=== PATIENT | female | born 1975 | race Caucasian/White ===

== ENCOUNTER 2017-07-31 05:35 | Day surgery (SDC) | payer MEDICARE ==
[~2017-07-31] VITALS: Ht 170.2 cm; Wt 97.5 kg
[~2017-07-31 05:35] MED LIST: ACIDOPHILUS1 EAC5 PO; AMBIEN5 MG PO; HUMALOG100 UNITS/ IV; JANUMET XR 50-1 EAC1 PO; LANTUS100 UNITS/ SUB-Q; MS CONTIN15 MG PO; MULTIVITAMINS1 EAC7 PO; PERCOCET 5-3251 EACH PO
[2017-07-31] MEDS ORDERED: LORAZEPAM0.5 MG PO (05:47)
--- NOTE | 2017-07-31 08:21 | NUR ---
07/31/17 0821 Alida Calderon 0804 PT ARRIVED IN PACU VERY SLEEPY. ANESTHESIA AT BEDSIDE.
--- NOTE | 2017-07-31 08:51 | NUR ---
PT IS BACK TO DS FROM PACU. PT REPORTS NEEDING TO URINATE OR HAVING THE URGE TO DO SO. SHE COMES OVER ON A BEDPAN. SHE IS HELPED UP OOB BY CARE COMPANION AND ESCORTED TO THE BATHROOM. CALL LIGHT IS WITHIN REACH. WATER ON BEDSIDE TABLE. NO OTHER C/O'S AT THIS TIME. WILL REASSESS WITHIN THE HOUR.
--- NOTE | 2017-07-31 11:12 | NUR ---
PT HAS BEEN ABLE TO TOLERATE FOOD AND BEVERAGE WITHOUT ISSUE. SHE IS ABLE TO GET HERSELF UP AND TRANSFER TO THE BATHROOM ON HER OWN. PAIN IS 0/10 AT THIS TIME. ONLY COMPLAINT IS THAT SHE IS TIRED. SHE HAS MET ALL DC CRITIERIA AT THIS TIME. WILL WORK ON DC PATIENT HOME.
--- NOTE | 2017-08-07 08:45 | OR ---
[facility] [address], [place] [address] Signed DATE OF OPERATION: 07/31/2017 SURGEON: Ravi Koehler MD PREOPERATIVE DIAGNOSIS: Interstitial cystitis. POSTOPERATIVE DIAGNOSIS: Interstitial cystitis. NAMES OF PROCEDURES: Diagnostic cystoscopy with hydrodistention. ANESTHESIA: General. ESTIMATED BLOOD LOSS: Minimal. COMPLICATIONS: None. SPECIMENS: None. DRAINS: None. INDICATIONS FOR PROCEDURE: Ms. Aguilar is a very pleasant 42-year-old female with a long-standing history of depression and narcotic use, who presented to my clinic with complaints of chronic dysuria and suprapubic pain. At the time, she was placed on Uribel, which resulted in a paradoxical worsening of her symptoms. She has elected to undergo cystoscopy with hydrodistention in hopes to get better control of her painful bladder symptoms. OPERATIVE FINDINGS: On cystoscopy, there was no evidence of any suspicious masses, lesions, or stones. The patient's bladder is diffusely erythematous with multiple superficial blood vessels noted. The patient's bladder was filled with a total of 800 mL of water and was maintained at this level of distention for approximately 8 minutes. She did develop Electronically Signed By: RAVI KOEHLER MD 08/07/17 0845 PATIENT NAME: CLINTON AGUILAR OPERATIVE REPORT DATE OF : 75 PHYSICIAN: RAVI KOEHLER MD REPORT #: [id number] REPORT IS CONFIDENTIAL AND NOT TO BE RELEASED WITHOUT AUTHORIZATION [facility] [address] [place], [place] [address] Signed some areas of glomerulation noted particularly on the right lateral wall once her bladder was distended for around 5 minutes or so. The patient's bladder was emptied completely at the end of procedure. DESCRIPTION OF PROCEDURE: After informed consent was obtained, the patient was taken back to the operating room. She was transferred from the [facility] to operating room table, where general anesthesia was induced. She was placed in dorsal lithotomy position and her genitalia prepped and draped in standard sterile fashion. Using a 30-degree lens on 22-Zambian introducer rigid cystoscope was inserted through the urethra and into her bladder under direct visualization. Panendoscopic views of the bladder were then obtained. Please see above findings. The patient's bilateral ureteral orifices are in their normal anatomic location. I emptied the patient's bladder and then reinserted the scope and began to fill her bladder. The patient's bladder was filled with a total of 800 mL of water. Her bladder remained full for approximately 8 minutes. Please see above findings. The patient's bladder was then emptied and drained completely. The procedure was then terminated. The patient tolerated the procedure well without any complication. She will now be transferred to the postanesthesia care unit in stable condition. DISPOSITION: I discussed the details of today's procedure with the patient's Trace and answered all of his questions. She will be sent home today with Cipro for a total of 7 days along with Percocet 5/325, dispense #20 as needed for pain. She will be scheduled to return to clinic in approximately 5 weeks for routine postoperative check. MD ABDULKADIR Curran/MODL /[id number] Electronically Signed By: RAVI KOEHLER MD 08/07/17 0845 PATIENT NAME: CLINTON AGUILAR OPERATIVE REPORT DATE OF : 75 PHYSICIAN: RAVI KOEHLER MD REPORT #: [id number] REPORT IS CONFIDENTIAL AND NOT TO BE RELEASED WITHOUT AUTHORIZATION
== END 2017-07-31 11:25 | disposition home or self-care (01) ==
LOC: OPS 05:35 → DS 05:35 → OPS 06:45 → DS 06:45 → OPS 11:25
PROVIDERS: Urology
PROC: 0T7B8ZZ Dilation of Bladder, Via Natural or Artificial Opening Endoscopic (ICD-10-PCS; principal; 2017-07-31 06:45)
DX: N30.10 Interstitial cystitis (chronic) without hematuria (principal); E11.9 Type 2 diabetes mellitus without complications; M79.7 Fibromyalgia; Z90.710 Acquired absence of both cervix and uterus; Z98.890 Other specified postprocedural states; Z88.2 Allergy status to sulfonamides; Z88.1 Allergy status to other antibiotic agents; Z88.8 Allergy status to other drugs, medicaments and biological substances
CPT/HCPCS: 00910; J0696; J1100; J1170; J1885; J2250; J2405; J2704; J2765; J3010; J7120

== ENCOUNTER 2020-04-20 08:45 | Day surgery (SDC) | payer MEDICARE, BC ==
[~2020-04-20] VITALS: Ht 170.2 cm; Wt 215.0 kg
--- NOTE | ~2020-04-20 | OR ---
[facility] [address] [place], [place] [address] Draft DATE OF OPERATION: 04/20/2020 SURGEON: Ravi Koehler MD PREOPERATIVE DIAGNOSIS: Interstitial cystitis. POSTOPERATIVE DIAGNOSIS: Interstitial cystitis. PROCEDURES: Diagnostic cystoscopy with hydrodistention. ANESTHESIA: General. ESTIMATED BLOOD LOSS: Minimal. COMPLICATIONS: None. SPECIMENS: None. DRAINS: None. INDICATIONS FOR PROCEDURE: Clinton is a very pleasant 44-year-old female, who is well known to me. She has a longstanding history of interstitial cystitis and recently noticed a worsening of her symptoms of suprapubic pain, cramping, and dysuria. She recently requested another cystoscopy with hydrodistention as she has responded to this procedure in the past. She presents today to undergo the aforementioned procedure. OPERATIVE FINDINGS: 1. On cystoscopy, there was no evidence of any suspicious masses, lesions, or stones. Her bilateral ureteral orifices are in their normal anatomic location and effluxing clear urine. 2. The patient's bladder was filled to a maximum capacity of 700 mL for a total of 8 PATIENT NAME: CLINTON AGUILAR OPERATIVE REPORT DATE OF : 75 REPORT #: [id number] PHYSICIAN: RAVI KOEHLER MD PCP: ANA MARÍA BURROUGHS [facility] REPORT IS CONFIDENTIAL AND NOT TO BE RELEASED WITHOUT AUTHORIZATION [address] [address] Draft minutes. The patient's bladder showed good compliance, in that there was no intermittent leakage of fluid during the distention. There was only very minimal hemorrhage at the end of the distention. I only saw two small Hunner's ulcers at the completion of the procedure. DESCRIPTION OF PROCEDURE: After informed consent was obtained, the patient was taken back to the operating room. [facility] operating room table, where general anesthesia was induced. She was placed in the dorsal lithotomy position and her genitalia were prepped and draped in a standard sterile fashion. Using a 30-degree lens on a 22.5-Greek introducer, rigid cystoscope was inserted through the urethra into her bladder under direct visualization. Panendoscopic views of the bladder were then obtained. Please see above findings. I then emptied the patient's bladder, and then initiated the distention portion of the procedure. The patient's bladder was filled to a total of 700 mL for 8 minutes. At the end of the procedure, I only appreciated a very small amount of hemorrhage and only two small Hunner's ulcers located on the posterior/left lateral wall of the bladder. After the patient's bladder was completely drained of the 700 mL, I repeated diagnostic cystoscopy and was able to appreciate no active hemorrhage other than the two Hunner's ulcers. The patient's bladder was then drained again, and the cystoscope was removed. The procedure was then terminated. The patient tolerated the procedure well without any complication. She will now be transferred to the postanesthesia care unit in stable condition. DISPOSITION: The patient will be discharged to home later today when she awakes from general anesthetic. She was given prescriptions for Pyridium 200 mg p.o. t.i.d. p.r.n. dysuria, Percocet 10/325 q.6 hours p.r.n. pain, dispense #40, B and O suppository 16. q.12 hours p.r.n. bladder spasms, dispense #24, along with Cipro 500 mg p.o. b.i.d. for a total of 10 days. She will be scheduled return to clinic in three months for her first postoperative check. MD ABDULKADIR Curran/ERMIASL /[id number] PATIENT NAME: CLINTON AGUILAR OPERATIVE REPORT DATE OF : 75 REPORT #: [id number] PHYSICIAN: RAVI KOEHLER MD PCP: ANA MARÍA BURROUGHS Meghna REPORT IS CONFIDENTIAL AND NOT TO BE RELEASED WITHOUT AUTHORIZATION [facility] [address] [place] [id number] Draft Copies: ~ PATIENT NAME: CLINTON AGUILAR OPERATIVE REPORT DATE OF : 75 REPORT #: [id number] PHYSICIAN: RAVI KOEHLER MD PCP: ANA MARÍA BURROUGHS REPORT IS CONFIDENTIAL AND NOT TO BE RELEASED WITHOUT AUTHORIZATION
[~2020-04-20 08:45] MED LIST changes: +BELLADONNA-OPIU30 MG PR; +COMPAZINE25 MG PR; +CYCLOBENZAPRINE10 MG PO; +HYDROXYZINE HCL50 MG PO; +LEVOTHYROXINE50 MCG PO; +LORAZEPAM0.5 MG PO; +NOVOLIN 70100 UNIT/1; +SUDOGEST30 MG PO; +VENTOLIN HFA18 GM
[2020-04-20] MEDS ORDERED: PERCOCET 5-3251 EACH PO (09:06)
--- NOTE | 2020-04-20 12:14 | NUR ---
04/20/20 1214 Alida Calderon 1131 PT ARRIVED IN PACU SLEEPY WITH OPA IN PLACE. 1139 PT REACTIVE. OPA REMOVED. BLOOD SUGAR 164. 1145 C/O URGE TO VOID. SITTING ON BEDPAN. 1150 UNABLE TO VOID. BEDPAN REMOVED. 1153 C/O BLADDER PAIN 7/10. FENTANYL 50MCG GIVEN IVP. 1158 PAIN DOWN TO 6/10. FENTANYL 50MCG GIVEN IVP. C/O NAUSEA. 1201 ZOFRAN 4MG GIVEN IVP. 1210 PAIN DOWN TO 5/10. NAUSEA GONE. TO DS. REPORT GIVEN TO NARENDRA.
--- NOTE | 2020-04-20 12:26 | NUR ---
PATIENT BACK TO ROOM @ 1210, BEDSIDE REPORT FROM HOLLIE MACKEY. PATIENT AWAKE AND ALERT. REPORTING PAIN 5/10 ON PAIN SCALE. PROVIDED WATER AND SNACKS. PATIENT TOLERATED WELL. ADMINISTERED PO PAIN MEDICAITON PER MAR. PATIENT REPORTS PAIN IN LOWER ABDOMEN AND VAGINAL AREA. STATES " THIS ALSO HAS MY FIBRO AND LUPUS WONDERING WHAT'S GOING ON". PATIENT APPEARS CALM. PATIENT SUPPORT ANIMAL IS ON LAP EATING YOCASTA CRACKERS WITH PATIENT. CALL LIGHT WITHINR REACH, AT BEDSIDE. NO OTHER NEEDS AT THIS TIME.
--- NOTE | 2020-04-20 13:00 | NUR ---
PT USES CALL LIGHT TO NOTIFY RN OF URGE TO VOID. PT SITS AT SIDE OF BED PRIR TO STANDING, DENIES NAUSEA OR DIZZINESS WITH POSITION CHANGE. RN ASSIST TO BATHROOM WITH STEADY GAIT. PT DENIES ANY PROBLEMS, RN ASSIST BACK TO DS RM 3. NEW BLANKETS PROVIDED, WANDY HUGGER ON WARM. PT SPOUSE AT BEDSIDE WITH SERVICE ANIMAL. CALL LIGHT WITHIN REACH.
--- NOTE | 2020-04-20 13:36 | NUR ---
PT PROVIDED JELLO AND MORE CRACKERS PER REQUEST. ICED WATER REFILLED. PT STATES IV GIVING HER ANXIETY AND REQUESTS IT BE TAKEN OUT. 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 SERVICE ANIMAL ON PT LAP AT THIS TIME. CALL LIGHT WITHIN REACH.
--- NOTE | 2020-04-20 14:44 | NUR ---
DC CRITERIA MET AT THIS TIME. PT AGREES THAT SHE IS READY TO DC HOME. PT DRESSES SELF WITH SPOUSE AT BEDSIDE, ENC TO OPEN CURTAIN WHEN FINISHED.
--- NOTE | 2020-04-20 15:48 | NUR ---
1450: DC INSTRUCTIONS GIVEN IN PRESENCE OF PT AND SPOUSE. PT DOES NOT HAVE ANY QUESTIONS BUT STATES THAT FOLLOW UP APPT WITH DR. KOEHLER WILL NOT WORK AND SHE WILL CALL TO RESCHEDULE. PAPER COPY OF PRESCRIPTION PROVIDED IN DC PACKET, PT NOTIFIED THEY NEED TO DROP IT OFF AT PHARMACY TO FILL. PT DC VIA WC TO PERSONAL VEHICLE DRIVEN BY SPOUSE TO HOME.
== END 2020-04-20 14:55 | disposition home or self-care (01) ==
LOC: OPS 08:45 → DS 08:45 → OPS 10:35 → DS 10:35 → OPS 14:55
PROVIDERS: ATTEND Urology
PROC: 0T7B8ZZ Dilation of Bladder, Via Natural or Artificial Opening Endoscopic (ICD-10-PCS; principal; 2020-04-20 10:35)
DX: N30.10 Interstitial cystitis (chronic) without hematuria (principal); E11.9 Type 2 diabetes mellitus without complications; M79.7 Fibromyalgia; E03.9 Hypothyroidism, unspecified; J45.909 Unspecified asthma, uncomplicated; F41.9 Anxiety disorder, unspecified; K21.9 Gastro-esophageal reflux disease without esophagitis; Z79.899 Other long term (current) drug therapy; Z79.4 Long term (current) use of insulin; Z88.8 Allergy status to other drugs, medicaments and biological substances; Z88.1 Allergy status to other antibiotic agents; Z88.2 Allergy status to sulfonamides
CPT/HCPCS: J0690; J1100; J1885; J2001; J2405; J2704; J3010; J7121

== ENCOUNTER 2025-05-06 08:45 | Day surgery (SDC) | payer MEDICARE, BC ==
[~2025-05-06] VITALS: Ht 172.7 cm; Wt 104.5 kg
[~2025-05-06 08:45] MED LIST changes: +IBLOOD GLUCOSE TEST STRIP 1 EA TEST VI PRN; +LACTATED RINGER'S 1,000 ML IV SCH; +LIDOCAINE HCL 1% 5 ML SDV INJ ONE; +MELATONIN3 MG PO
[2025-05-06 09:43] LABS: BASOPHILS 0.7 % (0.1-1.2); EOSINOPHILS 1.1 % (0.7-5.8); LYMPHOCYTES 23.8 % (19.3-51.7); MCH 29.2 PG (25.6-32.2); MCHC 34.6 g/dL (32.2-35.5); MCV 84.3 fL (79.4-94.8); MONOCYTES 5.3 % (4.7-12.5); NEUTROPHILS 69.0 % (34.0-71.1); RBC 5.42 M/uL (3.93-5.22)
[2025-05-06 10:00] LABS: ALT (SGPT) 32.0 U/L (14-59); AST (SGOT) 16.0 U/L (15-37); GLOMERULAR FILTRATION RATE,EST 67.0 mL/min (>60); PROTEIN, TOTAL 7.6 g/dL (6.4-8.2); UREA NITROGEN 15.0 mg/dL (7-18)
[2025-05-06 10:06] VITALS: BP 151/98
[2025-05-06] MEDS ORDERED: CIPROFLOXACIN 0.3% 5 ML HOME.PACK ONE (11:41)
[2025-05-06] MEDS ORDERED: CIPROFLOXACIN 0.3% 5 ML HOME.PACK OTIC ONE (11:45)
[2025-05-06] MEDS ORDERED: KETAMINE in NS 50 MG/5 ML SYR ONE (11:47)
[2025-05-06] MEDS ORDERED: MIDAZOLAM HCL 2 MG/2 ML VIAL ONE (11:47)
[2025-05-06] MEDS ORDERED: fentaNYL citrate 50 MCG/ML SDV ONE (12:10)
[2025-05-06] MEDS ORDERED: KETOROLAC TROMETHAMINE 30 MG/ML VIAL IV PRN (12:15)
[2025-05-06] MEDS ORDERED: IBLOOD GLUCOSE TEST STRIP 1 EA TEST VI PRN (12:15)
[2025-05-06] MEDS ORDERED: NALOXONE HCL 0.4 MG SYR IV PRN (12:15)
[2025-05-06] MEDS ORDERED: fentaNYL citrate 50 MCG/ML SDV IV PRN (12:15)
[2025-05-06 13:00] VITALS: BP 125/70
--- NOTE | 2025-05-06 13:03 | OR ---
[facility] [address] [place], [place] [address] Signed DATE OF OPERATION: 05/06/2025 SURGEON: Brayan Tipton MD PREOPERATIVE DIAGNOSIS: Eustachian tube dysfunction, right ear. POSTOPERATIVE DIAGNOSIS: Eustachian tube dysfunction, right ear. PROCEDURE: Right ear myringotomy with ventilation tube insertion. ANESTHESIA: General mask; IRRIGATOR SPRINKLING SYSTEM, Andre. HISTORY: Clinton is a 49-year-old lady with right-sided pressure, pain, difficulty clearing the ear for many months. She is taken to the operating room for the above-mentioned procedure for presumptive eustachian tube dysfunction. OPERATIVE PROCEDURE AND FINDINGS: After informed consent, the patient was taken to the operating room, placed in supine position where general mask anesthesia was induced. The patient and procedure were verified. The right ear was examined with the operating microscope and the inferior radial myringotomy was made. No middle ear effusion. Cavanaugh tube placed. Ofloxacin ophthalmic drops applied to the ear canal, cotton ball the meatus. The patient was awakened, transported back to recovery room in good condition. No complications. BLOOD LOSS: Minimal. SPECIMEN: None. DRAINS: None. Electronically Signed By: BRAYAN TIPTON MD 05/06/25 1303 PATIENT NAME: CLINTON AGUILAR OPERATIVE REPORT DATE OF : 75 REPORT #: [id number] PHYSICIAN: BRAYAN TIPTON MD PCP: MARY MCKEON MD REPORT IS CONFIDENTIAL AND NOT TO BE RELEASED WITHOUT AUTHORIZATION [place] [address] [place], [place] [address] Signed Brayan Tipton MD /[facility] /[id number] Copies: ~ Electronically Signed By: BRAYAN TIPTON MD 05/06/25 1303 PATIENT NAME: CLINTON AGUILAR FRANCO OPERATIVE REPORT DATE OF : 75 REPORT #: [id number] PHYSICIAN: BRAYAN TIPTON MD PCP: MARY MCKEON MD REPORT IS CONFIDENTIAL AND NOT TO BE RELEASED WITHOUT AUTHORIZATION
--- NOTE | 2025-05-06 13:32 | NUR ---
1300-PT BACK TO ROOM FROM PACU ON RA. RECEIVED REPORT FROM CLINTON MACKEY. PT IS AWAKE. RESP EVEN AND UNLABORED. RATES PAIN 3/10 AND THIS IS TOLERABLE FOR HER AT THIS POINT. DENIES NAUSEA. PT DRINKING WATER AND JUICE. EATING CRACKERS AND PUDDING. AT BEDSIDE. NO OTHER NEEDS AT THIS TIME. CALL LIGHT WITHIN REACH.
--- NOTE | 2025-05-06 13:39 | NUR ---
LET PT KNOW THAT CLINTON CALLED AND SPOKE W/DANUTA PRINCE, STATES HE WILL BE CALLING IN PRN PAIN MED TO PT PHARMACY IN [place]. PT IS HAPPY WITH THIS. PT HAS DRANK ALL FLUIDS AT BEDSIDE. PT STATES NO FURTHER NEEDS OR QUESTIONS AT THIS TIME. LET PT KNOW SHE CAN GET DRESSED IN 10 MINUTES.
--- NOTE | 2025-05-06 13:50 | NUR ---
PT GETTING DRESSED AT THIS TIME. IV DC'ED, WNL. CALL LIGHT WITHIN REACH. AT BEDSIDE.
[2025-05-06 13:51] VITALS: BP 128/73
--- NOTE | 2025-05-06 14:03 | NUR ---
IN PT ROOM FOR DC EDUCATION. PT STATES VERBAL UNDERSTANDING AND NO FURTHER QUESTIONS AT THIS TIME. PT OFF OF UNIT VIA WC TO PASSENGER SIDE OF VEHICLE. ALL BELONGINGS IN PT POSSESSION AT THIS TIME.
[2025-05-06 14:50] VITALS: BP 132/83
--- NOTE | 2025-05-06 15:01 | NUR ---
05/06/25 1501 Lbierty,Opal 1207 PT ARRIVED TO PACU ON 6L VIA MASK, PT WAKES AND DENIES CONCERNS. PT REORIENTED TO PACU. 1209 O2 REMOVED, PT REPORTS PAIN IN HER EAR, 4/10. 1215 PAIN MEDICATION GIVEN PER EMAR. PT REPORTS THIS EAR HAS BEEN REALLY HURTING FOR A LONG TIME. 1220 PT REPORTS NO CHANGE IN PAIN, MEDICATION GIVEN. 1234 PT REPORTS NO CHANGE IN PAIN, MEDICAITON GIVEN. PT RESTING IN BED AND SAY "IT HURTS" OFF AND ON. 1245 PT REPORTS "IT GETTING A LITTLE BETTER BUT NOT MUCH." RATES PAIN 4/10. PAIN MEDICATION GIVEN. 1255 "OH I JUST GOT NAUSEOUS, DO HAVE ANYTHING FOR NAUSEA?" NAUSEA MED GIVEN. 1300 PT REPORTS PAIN IS 4/10 AND "DOING BETTER." REPORT TO DS RN AND PT AT BEDSIDE. ALL QUESTIONS ANSWERED.
--- NOTE | 2025-05-07 17:50 | EKG ---
[facility] [address] [facility] [place] [address] Signed Normal sinus rhythm Normal ECG When compared with ECG of 13-APR-2020 15:00, No significant change was found Confirmed by Dominic Shirley DO ([id number]) on 05/07/2025 5:50:09 PM Electronically Signed By: DOMINIC SHIRLEY DO 05/07/251749 PATIENT NAME: LARON AGUILARAlvin GAMEZ Electrocardiogram DATE OF : 75 PHYSICIAN: DOMINIC SHIRLEY DO REPORT #: [id number] REPORT IS CONFIDENTIAL AND NOT TO BE RELEASED WITHOUT AUTHORIZATION
== END 2025-05-06 14:05 | disposition home or self-care (01) ==
LOC: DS 08:45
PROVIDERS: Nurse Anesthetist, Certified Registered; ATTEND Otolaryngology
PROC: 099500Z Drainage of Right Middle Ear with Drainage Device, Open Approach (ICD-10-PCS; principal; 2025-05-06 12:00)
DX: H69.81 Other specified disorders of Eustachian tube, right ear (principal); E11.9 Type 2 diabetes mellitus without complications; Z88.2 Allergy status to sulfonamides; Z88.8 Allergy status to other drugs, medicaments and biological substances
CPT/HCPCS: 00126; 36415; 80053; 85025; 93005; 93010; J1885; J2250; J2405; J2704; J3010; J3490; J7121